=== PATIENT | female | born 1995 | race Caucasian/White ===

== ENCOUNTER 2020-03-21 05:33 | Emergency (ER) | payer MEDICAID ==
[~2020-03-21] VITALS: Ht 160 cm; Wt 52.3 kg
[2020-03-21 05:36] VITALS: Ht 160 cm; Wt 52.3 kg
[2020-03-21 06:04] LABS: BASOPHILS 0.3 % (0-2); EOSINOPHILS 0.9 % (0-7); HEMATOCRIT 39.6 % (36.0-48.0); HEMOGLOBIN 12.9 g/dL (12-16); IMMATURE GRANULOCYTES 0.1 % (0-5); LYMPHOCYTES 33.1 % (15-50); MCH 30.1 pg (26.0-34.0); MCHC 32.6 g/dL (31.0-37.0); MCV 92.5 fL (80.0-100.0); MEAN PLATELET VOLUME 10.5 fL (7.4-10.4); MONOCYTES 7.8 % (2-11); NEUTROPHILS 57.8 % (40-80); PLATELET COUNT 251 10x3/uL (130-400); RBC 4.28 10x6/uL (4.00-5.40); RDW 13.9 % (11.5-14.5); WBC 6.8 10x3/uL (4.8-10.8)
[2020-03-21 06:13] LABS: CALC OSMOLALITY 278 mosm/kg (275-300); CALCIUM 8.4 mg/dL (8.5-10.1); CARBON DIOXIDE 26.2 mmol/L (21.0-32.0); CHLORIDE - SERUM 104 mmol/L (98-107); CREATININE - SERUM 0.9 mg/dL (0.6-1.3); GLUCOSE 118 mg/dL (74-106); POTASSIUM - SERUM 3.5 mmol/L (3.5-5.1); SODIUM 140 mmol/L (136-145); UREA NITROGEN 9 mg/dL (7-18); eGFR NON AFRICAN AMERICAN 81 mL/min (90-120)
[2020-03-21 06:19] LABS: ALBUMIN 3.6 g/dL (3.4-5.0); ALKALINE PHOSPHATASE 62 U/L (30-120); ALT (SGPT) 13 U/L (10-68); BILIRUBIN - TOTAL 0.54 mg/dL (0.2-1.3); MAGNESIUM - SERUM 1.9 mg/dL (1.8-2.4)
[2020-03-21 06:35] LABS: BILIRUBIN NEGATIVE (NEGATIVE); GLUCOSE NEGATIVE (NEGATIVE); HCG URINE NEGATIVE (NEGATIVE); KETONE NEGATIVE (NEGATIVE); NITRITE NEGATIVE (NEGATIVE); UROBILINOGEN NORMAL (NORMAL)
[2020-03-21 06:40] LABS: UDS - AMPHET NEGATIVE QUAL (NEGATIVE); UDS - BARB NEGATIVE QUAL (NEGATIVE); UDS - BENZO POSITIVE QUAL (NEGATIVE); UDS - COCAINE NEGATIVE QUAL (NEGATIVE); UDS - OPIATE NEGATIVE QUAL (NEGATIVE); UDS - PCP NEGATIVE QUAL (NEGATIVE); UDS - THC POSITIVE QUAL (NEGATIVE)
[2020-03-21 06:43] LABS: BACTERIA FEW /hpf (NEGATIVE); RED CELLS - URINE 0-5 /hpf (0-5); WHITE CELLS - URINE 0-5 /hpf (NEGATIVE)
[2020-03-21 08:55] VITALS: BP 118/82
== END 2020-03-21 08:56 | disposition home or self-care (01) ==
LOC: D.ER 05:33
PROVIDERS: Family Medicine
DX: F51.4 Sleep terrors [night terrors] (principal); R51 Headache

== ENCOUNTER 2021-02-24 07:14 | Emergency (ER) | payer MEDICAID ==
[~2021-02-24] VITALS: Ht 160 cm; Wt 61.2 kg
[2021-02-24 07:19] VITALS: Ht 160 cm; Wt 61.2 kg
[2021-02-24] MEDS ORDERED: PROPRANOLOL HCL20 MG PO (07:21)
[2021-02-24 07:54] LABS: BASOPHILS 1.2 % (0-2); EOSINOPHILS 1.7 % (0-7); HEMATOCRIT 43.2 % (36.0-48.0); HEMOGLOBIN 14.4 g/dL (12-16); LYMPHOCYTES 22.5 % (15-50); MCH 31.2 pg (26.0-34.0); MCHC 33.3 g/dL (31.0-37.0); MCV 93.7 fL (80.0-100.0); MEAN PLATELET VOLUME 7.9 fL (7.4-10.4); MONOCYTES 7.7 % (2-11); NEUTROPHILS 66.9 % (40-80); RBC 4.61 10x6/uL (4.00-5.40); RDW 14.1 % (11.5-14.5); WBC 8.1 10x3/uL (4.8-10.8)
[2021-02-24 08:16] LABS: CALC OSMOLALITY 281 mosm/kg (275-300); CALCIUM 9.3 mg/dL (8.5-10.1); CARBON DIOXIDE 28.5 mmol/L (21.0-32.0); CHLORIDE - SERUM 103 mmol/L (98-107); CREATININE - SERUM 0.7 mg/dL (0.6-1.3); GLUCOSE 89 mg/dL (74-106); SODIUM 141 mmol/L (136-145); UREA NITROGEN 18 mg/dL (7-18); eGFR NON AFRICAN AMERICAN > 90 mL/min (90-120)
[2021-02-24 08:18] LABS: PLATELET COUNT 396 10x3/uL (130-400)
[2021-02-24 08:20] LABS: ALKALINE PHOSPHATASE 78 U/L (30-120); ALT (SGPT) 36 U/L (10-68); BILIRUBIN - TOTAL 0.68 mg/dL (0.2-1.3); LIPASE 75 U/L (73-393); POTASSIUM - SERUM 4.5 mmol/L (3.5-5.1); PROTEIN - SERUM 8.4 g/dL (6.4-8.2)
[2021-02-24 08:21] LABS: HCG URINE NEGATIVE (NEGATIVE)
[2021-02-24 08:24] LABS: BILIRUBIN NEGATIVE (NEGATIVE); KETONE NEGATIVE (NEGATIVE); NITRITE NEGATIVE (NEGATIVE); UROBILINOGEN NORMAL mg/dL (< 2)
[2021-02-24 08:27] LABS: BACTERIA FEW HPF (NONE SEEN); SQUAMOUS EPITHELIAL 0-5 HPF (0-4)
[2021-02-24] MEDS ORDERED: ZOFRAN ODT4 MG/UDTAB PO (08:38)
[2021-02-24 09:04] VITALS: BP 131/89
== END 2021-02-24 09:06 | disposition home or self-care (01) ==
LOC: D.ER 07:14
PROVIDERS: Student in an Organized Health Care Education/Training Program
DX: R10.32 Left lower quadrant pain (principal); R11.2 Nausea with vomiting, unspecified